=== PATIENT | female | born 1995 | race Caucasian/White ===

== ENCOUNTER → 2023-02-27 | Outpatient (CLI) | payer OTHER, SELFPAY | LOC: M WHC 10:36 | PROVIDERS: ATTEND Obstetrics & Gynecology | DX: Z36.2 Encounter for other antenatal screening follow-up (principal) ==

== ENCOUNTER → 2023-02-27 | Outpatient (CLI) | payer OTHER ==
[2023-02-27 17:18] LABS: HEMATOCRIT 35.5 % (36.0-47.0); HEMOGLOBIN 11.4 g/dl (12.0-15.5); MEAN CORPUSCULAR HEMOGLOBIN 28.7 pg (27.0-33.0); MEAN CORPUSCULAR HGB CONC 32.1 g/dl (32.0-36.5); MEAN CORPUSCULAR VOLUME 89.4 fl (80.0-96.0); PLATELET COUNT, AUTOMATED 272 10^3/uL (150-450); RED BLOOD COUNT 3.97 10^6/uL (4.00-5.40); WHITE BLOOD COUNT 8.2 10^3/uL (4.0-10.0)
[2023-02-27 17:19] LABS: TOTAL PROTEIN,RANDOM URINE 27.4 MG/DL (0.0-14.0)
[2023-02-27 17:24] LABS: CREATININE,RANDOM URINE 101.5 MG/DL
[2023-02-27 17:39] LABS: ALKALINE PHOSPHATASE 60 U/L (46-116); ALT/SGPT 21 U/L (7.0-40); AST/SGOT 10 U/L (<34); BILIRUBIN,TOTAL 0.3 MG/DL (0.3-1.2); BLOOD UREA NITROGEN 7 MG/DL (9-23); CALCIUM LEVEL 8.8 MG/DL (8.5-10.1); CARBON DIOXIDE LEVEL 25 MMOL/L (20-31); CHLORIDE LEVEL 105 MMOL/L (98-107); CREATININE FOR GFR 0.54 MG/DL (0.55-1.30); GLOMERULAR FILTRATION RATE > 60.0 (>60); GLUCOSE CHALLENGE TEST 1 HOUR 118 MG/DL (LESS THAN 140); GLUCOSE, FASTING 118 MG/DL (60-100); SODIUM LEVEL 137 MMOL/L (136-145); TOTAL PROTEIN 6.5 G/DL (5.7-8.2)
[2023-02-27 18:46] LABS: GC DNA AMPLIFICATION NEGATIVE (NEGATIVE)
== END ==
LOC: M PLALAB 12:11
PROVIDERS: ATTEND Obstetrics & Gynecology
DX: Z34.92 Encounter for supervision of normal pregnancy, unspecified, second trimester (principal); Z87.59 Personal history of other complications of pregnancy, childbirth and the puerperium
CPT/HCPCS: 36415; 80053; 82570; 82950; 84156; 85027; 86850; 86900; 86901; 87810; 87850; J2790

== ENCOUNTER → 2023-03-26 | Outpatient (CLI) | payer OTHER | LOC: M WHC 08:40 | PROVIDERS: ATTEND Advanced Practice Midwife | DX: Z34.93 Encounter for supervision of normal pregnancy, unspecified, third trimester (principal); Z3A.31 31 weeks gestation of pregnancy ==

== ENCOUNTER → 2023-05-01 | Outpatient (REF) | payer OTHER | LOC: M PLALAB 11:03 | PROVIDERS: ATTEND Advanced Practice Midwife | DX: O09.293 Supervision of pregnancy with other poor reproductive or obstetric history, third trimester (principal) | CPT/HCPCS: 87081; G0463 ==

== ENCOUNTER → 2023-05-12 | Outpatient (CLI) | payer OTHER | LOC: M WHC 07:41 | PROVIDERS: ATTEND Advanced Practice Midwife | DX: O26.843 Uterine size-date discrepancy, third trimester (principal) ==

== ENCOUNTER → 2024-01-28 | Outpatient (REF) | payer OTHER ==
[~2024-01-28] MED LIST: ACET-683 PO; ASPI81CH33 PO; COLA100C5 PO; IBUP-1022 PO; PRENTAB9 PO
[2024-01-30 11:20] LABS: HPV APTIMA Not Detected (Not Detected)
== END ==
LOC: M SFHCWAGY 15:09
PROVIDERS: ATTEND Nurse Practitioner Family
DX: Z12.4 Encounter for screening for malignant neoplasm of cervix (principal)
CPT/HCPCS: 87624; G0123

== ENCOUNTER → 2025-01-25 | Outpatient (CLI) | payer OTHER | LOC: M WHC 06:39 | PROVIDERS: ATTEND Nurse Practitioner Family | DX: R42 Dizziness and giddiness (principal) ==

== ENCOUNTER → 2025-04-24 | Outpatient (REF) ==
[~2025-04-24] MED LIST changes: -IBUP-1022 PO; +IBUP600T42 PO
== END ==
LOC: M EMP 09:25
PROVIDERS: ATTEND Family Medicine
DX: Z02.89 Encounter for other administrative examinations (principal)